=== PATIENT | female | born 1935 | race Caucasian/White ===

== ENCOUNTER 2019-03-26 20:35 | Emergency (ER) | payer MEDICARE, MEDICAID ==
[~2019-03-26] VITALS: Ht 162.6 cm; Wt 126.1 kg
[2019-03-26 21:03] VITALS: BP 139/78
[2019-03-26] MEDS ORDERED: CLINDAMYCIN HCL 150 MG CAPSULE PO ONE ×2 (21:52→22:00)
== END 2019-03-26 22:28 | disposition home or self-care (01) ==
LOC: ER 20:39
DX: L03.115 Cellulitis of right lower limb (principal); I10 Essential (primary) hypertension; E11.9 Type 2 diabetes mellitus without complications; J45.909 Unspecified asthma, uncomplicated; M19.90 Unspecified osteoarthritis, unspecified site
CPT/HCPCS: 93971-TC

== ENCOUNTER 2019-06-25 14:56 | Emergency (ER) | payer MEDICARE, OTHER ==
[~2019-06-25] VITALS: Ht 152.4 cm; Wt 68.0 kg
--- NOTE | 2019-06-25 15:44 | NUR ---
BIB SON 83 YEAR OLD FEMALE C/O BLE EXTREMITY SWELLING X 2 DAYS. ALERT AND ORIENTED IN HER PORT HEIDEN LANGUAGE. BREATHING EVEN AND UNLABORED WITH NO DISTRESS NOTED. SKIN INTACT AND WARM TO [facility]. WAITING TO BE SEEN BY
[2019-06-25 16:08] LABS: BASOPHILS % (AUTO) 0.7 % (0.0-2.0); EOSINOPHILS % (AUTO) 1.7 % (0.0-6.0); HEMATOCRIT 34 % (33-45); HEMOGLOBIN 11.3 g/dL (11.5-14.8); LYMPHOCYTES # (AUTO) 1.1 /CMM (0.8-4.8); LYMPHOCYTES % (AUTO) 22.6 % (20.0-44.0); MEAN CORPUSCULAR HGB CONC 33 g/dl (31.0-36.0); MEAN CORPUSCULAR VOLUME 89 fL (82-100); MONOCYTES # (AUTO) 0.4 /CMM (0.1-1.30); MONOCYTES % (AUTO) 7.3 % (2.0-12.0); NEUTROPHILS # (AUTO) 3.3 /CMM (1.8-8.9); NEUTROPHILS % (AUTO) 67.7 % (43.0-81.0); PLATELET COUNT (AUTO) 76 /CMM (150-450); RED BLOOD CELL COUNT(AUTO) 3.86 MIL/uL (4.0-5.2); WHITE BLOOD COUNT (AUTO) 4.9 K/uL (4.3-11.0)
--- NOTE | 2019-06-25 16:18 | NUR ---
textile technical officer at bedside
[2019-06-25 16:33] LABS: CALCIUM, SERUM 9.3 mg/dL (8.5-10.1); CARBON DIOXIDE 24 mmol/L (21-32); CHLORIDE 104 mmol/L (98-107); CREATININE 1.4 mg/dL (0.6-1.3); GLUCOSE 198 mg/dL (74-106); POTASSIUM 4.3 mmol/L (3.5-5.1); SODIUM SERUM 139 mmol/L (136-145); UREA NITROGEN, BLOOD 28 mg/dL (7-18)
[2019-06-25 16:42] LABS: ALANINE AMINOTRANSFERASE 46 U/L (12-78); ALBUMIN 2.9 g/dL (3.4-5.0); ALKALINE PHOSPHATASE 84 U/L (46-116); ASPARTATE AMINOTRANSFERASE 47 U/L (15-37); B-TYPE NATRIURETIC PEPTIDE 396 PG/ML (0-125); BILIRUBIN,DIRECT 0.2 mg/dL (0.0-0.2); BILIRUBIN,TOTAL 0.5 mg/dL (0.2-1.0); TOTAL PROTEIN, SERUM 7.4 g/dL (6.4-8.2)
[2019-06-25] MEDS ORDERED: IV NS 0.9% 250 ML IV ONE (17:56)
[2019-06-25] MEDS ORDERED: IOHEXOL-350 100 ML VIAL IV ONE (17:56)
[2019-06-25] MEDS ORDERED: CT SWABBABLE VALVE TRANS SET 1 EA INFUS.SET MC ONE (17:56)
--- NOTE | 2019-06-25 18:36 | NUR ---
not able to start iv on pt, midline order to be inserted
--- NOTE | 2019-06-25 18:43 | NUR ---
midline nurse eta in 30 mins
--- NOTE | 2019-06-25 19:26 | NUR ---
midline nurse at bedside
--- NOTE | 2019-06-25 19:58 | NUR ---
PT TO CT ON [facility]
--- NOTE | 2019-06-25 21:18 | NUR ---
md at bedside talking to pt
[2019-06-25 21:48] VITALS: BP 150/81
--- NOTE | 2019-06-25 21:48 | NUR ---
Patient discharged to home in stable condition. Written and verbal after care instructions given. Patient verbalizes understanding of instruction. Mid line removed. Catheter intact and site benign. Pressure and 4x4 applied to site. No bleeding noted.
== END 2019-06-25 21:49 | disposition home or self-care (01) ==
LOC: ER 15:10
DX: R06.00 Dyspnea, unspecified (principal); K74.60 Unspecified cirrhosis of liver; D64.9 Anemia, unspecified; J45.909 Unspecified asthma, uncomplicated; R22.43 Localized swelling, mass and lump, lower limb, bilateral; I10 Essential (primary) hypertension; E11.9 Type 2 diabetes mellitus without complications; M19.90 Unspecified osteoarthritis, unspecified site
CPT/HCPCS: 36415; 71045; 71275; 80048; 80076; 83880; 84484; 85025; 85378; 85730; 93005; 93970; 99284; J7050; Q9967